=== PATIENT | male | born 1990 | race African-American/Black ===

== ENCOUNTER 2020-01-04 21:56 | Emergency (ER) | payer SELFPAY ==
[~2020-01-04] VITALS: Ht 182.9 cm; Wt 80.3 kg
[2020-01-04 22:14] VITALS: Ht 182.9 cm; Wt 80.3 kg
[2020-01-05 01:04] VITALS: BP 106/70
== END 2020-01-05 01:04 | disposition home or self-care (01) ==
LOC: ED 21:56
DX: A54.9 Gonococcal infection, unspecified (principal); A64 Unspecified sexually transmitted disease
CPT/HCPCS: J0696